=== PATIENT | male | born 1985 | race Native Hawaiian/Other Pacific Islander ===

== ENCOUNTER 2024-03-25 03:18 | Emergency (ER) | payer SELFPAY ==
--- NOTE | 2024-03-25 04:07 | EDPHYS ---
Physician Documentation [facility] Name: Cheo Amor Age: 38 yrs Sex: Male : 1985 Arrival Date: 03/25/2024 Time: 03:18 Bed IW1 Private MD: ED Physician Kareem Gutierrez HPI: 03/25 03:47 This 38 yrs old Male presents to ER via Ambulatory with complaints of Cough, sp4 Congestion, Fever, Drainage From Eye. 04:01 30-year-old male presents with 5 days of cough congestion bilateral eye drainage sp4 subjective fever and sore throat . Historical: - Allergies: 03:42 Sulfa (Sulfonamide Antibiotics); lg3 03:42 Vancomycin; lg3 - Home Meds: 03:42 furosemide 40 mg Oral tablet [Active]; Vitamin D Oral [Active]; Entresto 49-51 mg oral lg3 tablet [Active]; isosorbide mononitrate 30 mg Oral Tablet, Extended Release 24 hr [Active]; rosuvastatin 10 mg oral tablet [Active]; carvedilol 3.125 mg oral tablet [Active]; Metformin Oral [Active]; Trulicity 4.5 mg/0.5 mL subcutaneous Pen Injector [Active]; Basaglar KwikPen U-100 Insulin 100 unit/mL (3 mL) subcutaneous Insulin Pen [Active]; - PMHx: 03:42 Diabetes mellitus; systolic heart failure; Hypercholesterolemia; lg3 - PSHx: 03:42 anal fissure repair; Myringotomy and insertion of tympanic ventilation tube; lg3 - Immunization history:: Adult Immunizations up to date, Client reports receiving the 2nd dose of the Covid vaccine, Flu vaccine is not up to date. - Infectious Disease History:: Denies. - Social history:: Smoking status: Patient denies any tobacco usage or history of. Patient/guardian denies using alcohol, street drugs. - Family history:: not pertinent. ROS: 04:01 Constitutional: Positive fever, positive cough, positive congestion, positive sore sp4 throat, positive bilateral eye drainage 04:01 All other systems are negative, Exam: 04:01 Constitutional: This is a well developed, well nourished patient who is awake, alert, sp4 and in no acute distress. Head/Face: Normocephalic, atraumatic. Eyes: Pupils equal round and reactive to light, extra-ocular motions intact. Lids and lashes normal. Conjunctiva and sclera are injected bilaterally, bilateral tear duct purulent drainage. ENT: Nares patent. No nasal discharge, no septal abnormalities noted. Tympanic membranes are normal and external auditory canals are clear. Oropharynx with redness and exudate Neck: Trachea midline, no thyromegaly or masses palpated, and no cervical lymphadenopathy. Supple, full range of motion without nuchal rigidity, or vertebral point tenderness. Chest/axilla: Normal chest wall appearance and motion. Nontender with no deformity. No lesions are appreciated. Cardiovascular: Regular rate and rhythm with a normal S1 and S2. No gallops, murmurs, or rubs. Normal PMI, no JVD. No pulse deficits. Respiratory: Lungs have equal breath sounds bilaterally, clear to auscultation and percussion. No rales, rhonchi or wheezes noted. No increased work of breathing, no retractions or nasal flaring. Abdomen/GI: Soft, with normal bowel sounds. No distension or tympany. No guarding or rebound. No evidence of tenderness throughout. Back: No spinal tenderness. No costovertebral tenderness. Skin: Warm, dry with normal turgor. Normal color with no rashes, no lesions, and no evidence of cellulitis. MS/ Extremity: Pulses equal, no cyanosis. Neurovascular intact. Full, normal range of motion. Neuro: Awake and alert, GCS 15, oriented to person, place, time, and situation. Cranial nerves II-XII grossly intact. Motor strength 5/5 in all extremities. Sensory grossly intact. Psych: Awake, alert, with orientation to person, place and time. Behavior, mood, and affect are within normal limits Vital Signs: 03:40 BP 100 / 81; Pulse 111; Resp 17 S; Temp 98.4(O); Pulse Ox 98% on R/A; Weight 147.42 kg lg3 (R); Height 6 ft. 0 in. (R); 04:25 BP 101 / 83; Pulse 102; Resp 17 S; Temp 98.2(O); Pulse Ox 98% on R/A; lg3 03:40 Body Mass Index 44.08 (147.42 kg, 182.88 cm) lg3 Yoni Coma Score: 04:01 Eye Response: spontaneous(4). Motor Response: obeys commands(6). Verbal Response: sp4 oriented(5). Total: 15. MDM: 03:54 Patient medically screened. sp4 04:01 Differential Diagnosis: Bronchitis Influenza Upper Respiratory Infection Sinusitis sp4 Pharyngitis Otitis Media. Data reviewed: vital signs, nurses notes. ED course: Bilateral eye drainage -plan to give Rocephin and cephalexin.. Administered Medications: 04:21 Drug: Rocephin (cefTRIAXone) IM 1 grams IM once Route: IM; Site: right deltoid; lg3 04:26 Follow up: Response: No adverse reaction lg3 04:21 Not Given (not avaliablee): [id number] mg PO once lg3 04:21 Drug: Acetaminophen PO 1000 mg PO once Route: PO; lg3 04:26 Follow up: Response: No adverse reaction lg3 04:21 Drug: Ibuprofen PO 600 mg PO once Route: PO; lg3 04:26 Follow up: Response: No adverse reaction lg3 04:21 Drug: Tessalon Perle PO 200 mg PO once Route: PO; lg3 04:26 Follow up: Response: No adverse reaction lg3 Disposition Summary: 03/25/24 04:06 Discharge Ordered Notes: Location: Home sp4 Problem: new sp4 Symptoms: have improved sp4 Condition: Stable sp4 Diagnosis - Acute pharyngitis, unspecified sp4 - Acute bilateral tear duct infection, acute upper respiratory infection, acute sp4 bronchitis Followup: sp4 - With: Private Physician - When: 7 - 10 days - Reason: Recheck today's complaints Discharge Instructions: - Discharge Summary Sheet sp4 - Pharyngitis sp4 Forms: - Patient Portal Instructions sp4 Prescriptions: - Benadryl 25 mg Oral capsule - take 1 capsule ORAL route once daily As needed Before bedtime for congestion; sp4 30 tablet; Refills: 0, Product Selection Permitted - Cephalexin 500 mg Oral Capsule - take 1 capsule ORAL route every 12 hours for 10 days; 20 capsule; Refills: 0, sp4 Product Selection Permitted - Claritin 10 mg Oral Tablet - take 1 tablet ORAL route once daily As needed; 30 tablet; Refills: 0, Product sp4 Selection Permitted - benzonatate 200 mg Oral capsule - take 1 capsule ORAL route 3 times per day as needed; 60 capsule; Refills: 0, sp4 Product Selection Permitted Signatures: Araceli Walton RN RN lg3 Kareem Gutierrez MD MD sp4 Corrections: (The following items were deleted from the chart) 03:48 03:42 PMHx: Congestive heart failure; lg3 lg3
--- NOTE | 2024-03-25 04:07 | ER ---
Nurse's Notes [facility] Name: Cheo Amor Age: 38 yrs Sex: Male : 1985 Arrival Date: 03/25/2024 Time: 03:18 Bed IW1 Private MD: Diagnosis: Acute pharyngitis, unspecified;Acute bilateral tear duct infection, acute upper respiratory infection, acute bronchitis Presentation: 03/25 03:40 Chief complaint: Patient states: sore on the tip of my nose X2 weeks, runny nose, sore lg3 throat, congestion, drainage from right eye, pressure in both ears, headache. Coronavirus screen: Client denies travel out of the [place] in the last 14 days. Client presents with at least one sign or symptom that may indicate coronavirus-19. Standard/surgical mask placed on the client. Ebola Screen: No symptoms or risks identified at this time. Initial Sepsis Screen: Does the patient meet any 2 criteria? No. Patient's initial sepsis screen is negative. Does the patient have a suspected source of infection? No. Patient's initial sepsis screen is negative. Risk Assessment: Do you want to hurt yourself or someone else? Patient reports no desire to harm self or others. Onset of symptoms is unknown. 03:40 Method Of Arrival: Ambulatory lg3 03:40 Acuity: ISABELA 3 lg3 Triage Assessment: 03:42 General: Appears in no apparent distress. uncomfortable, Behavior is calm, cooperative. lg3 Pain: Complains of pain in head. EENT: Eyes with exudate noted from right eye Reports nasal congestion nasal discharge. Neuro: No deficits noted. Sanchez Agitation-Sedation Scale (RASS): 0 - Alert and Calm Level of Consciousness is awake, alert, obeys commands, Oriented to person, place, time, situation, Reports difficulty swallowing headache. Cardiovascular: No deficits noted. Denies chest pain, shortness of breath, Capillary refill < 3 seconds Clubbing of nail beds is absent JVD is absent Patient's skin is warm and dry. Respiratory: Reports cough that is pain with cough Airway is patent Respiratory effort is even, unlabored, Respiratory pattern is regular, symmetrical, Breath sounds are clear bilaterally. GI: No deficits noted. No signs and/or symptoms were reported involving the gastrointestinal system. Abdomen is round non-distended. : No deficits noted. No signs and/or symptoms were reported regarding the genitourinary system. Derm: Skin is intact, is healthy with good turgor, Skin is dry, Skin is normal, Skin temperature is warm Wound noted apex of the nose. Musculoskeletal: No deficits noted. No signs and/or symptoms reported regarding the musculoskeletal system. Circulation, motion, and sensation intact. Range of motion: intact in all extremities. Historical: - Allergies: 03:42 Sulfa (Sulfonamide Antibiotics); lg3 03:42 Vancomycin; lg3 - Home Meds: 03:42 furosemide 40 mg Oral tablet [Active]; Vitamin D Oral [Active]; Entresto 49-51 mg oral lg3 tablet [Active]; isosorbide mononitrate 30 mg Oral Tablet, Extended Release 24 hr [Active]; rosuvastatin 10 mg oral tablet [Active]; carvedilol 3.125 mg oral tablet [Active]; Metformin Oral [Active]; Trulicity 4.5 mg/0.5 mL subcutaneous Pen Injector [Active]; Basaglar KwikPen U-100 Insulin 100 unit/mL (3 mL) subcutaneous Insulin Pen [Active]; - PMHx: 03:42 Diabetes mellitus; systolic heart failure; Hypercholesterolemia; lg3 - PSHx: 03:42 anal fissure repair; Myringotomy and insertion of tympanic ventilation tube; lg3 - Immunization history:: Adult Immunizations up to date, Client reports receiving the 2nd dose of the Covid vaccine, Flu vaccine is not up to date. - Infectious Disease History:: Denies. - Social history:: Smoking status: Patient denies any tobacco usage or history of. Patient/guardian denies using alcohol, street drugs. - Family history:: not pertinent. Screenin:49 [facility] ED Fall Risk Assessment (Adult) History of falling in the last 3 months, lg3 including since admission No falls in past 3 months (0 pts) Confusion or Disorientation No (0 pts) Intoxicated or Sedated No (0 pts) Impaired Gait No (0 pts) Mobility Assist Device Used No (0 pt) Altered Elimination No (0 pt) Score/Fall Risk Level 0 - 2 = Low Risk Oriented to surroundings, Maintained a safe environment, Educated pt \T\ family on fall prevention, incl call for assistance when getting out of bed, Assessed \T\ reinforced patient's understanding of fall precautions. Abuse screen: Denies threats or abuse. Denies injuries from another. Nutritional screening: No deficits noted. Tuberculosis screening: No symptoms or risk factors identified. Assessment: 03:49 General: see triage assessment . Cardiovascular: No deficits noted. Denies chest pain, lg3 shortness of breath, Capillary refill < 3 seconds Clubbing of nail beds is absent JVD is absent Patient's skin is warm and dry. Respiratory: Reports cough that is pain with cough Airway is patent Trachea midline Respiratory effort is even, unlabored, Breath sounds are clear bilaterally. Vital Signs: 03:40 BP 100 / 81; Pulse 111; Resp 17 S; Temp 98.4(O); Pulse Ox 98% on R/A; Weight 147.42 kg lg3 (R); Height 6 ft. 0 in. (R); 04:25 BP 101 / 83; Pulse 102; Resp 17 S; Temp 98.2(O); Pulse Ox 98% on R/A; lg3 03:40 Body Mass Index 44.08 (147.42 kg, 182.88 cm) lg3 [place] Coma Score: 04:01 Eye Response: spontaneous(4). Motor Response: obeys commands(6). Verbal Response: sp4 oriented(5). Total: 15. ED Course: 03:20 Patient arrived in ED. [id number] 03:42 Triage completed. lg3 03:42 Arm band placed on left wrist. lg3 03:47 Kareem Gutierrez MD is Attending Physician. sp4 03:49 Patient has correct armband on for positive identification. lg3 04:25 No provider procedures requiring assistance completed. Patient did not have IV access lg3 during this emergency room visit. Administered Medications: 04:21 Drug: Rocephin (cefTRIAXone) IM 1 grams IM once Route: IM; Site: right deltoid; lg3 04:26 Follow up: Response: No adverse reaction lg3 04:21 Not Given (not avaliablee): [id number] mg PO once lg3 04:21 Drug: Acetaminophen PO 1000 mg PO once Route: PO; lg3 04:26 Follow up: Response: No adverse reaction lg3 04:21 Drug: Ibuprofen PO 600 mg PO once Route: PO; lg3 04:26 Follow up: Response: No adverse reaction lg3 04:21 Drug: Tessalon Perle PO 200 mg PO once Route: PO; lg3 04:26 Follow up: Response: No adverse reaction lg3 Medication: 04:25 VIS not applicable for this client. lg3 Outcome: 04:06 Discharge ordered by . sp4 04:25 Discharged to home ambulatory, lg3 04:25 Condition: stable 04:25 Discharge instructions given to patient, Instructed on discharge instructions, follow up and referral plans. medication usage, Demonstrated understanding of instructions, follow-up care, medications, Prescriptions given X 4, 04:29 Patient left the ED. lg3 Signatures: Araceli Walton RN RN lg3 Ema Saul [email or web address] Kareem Gutierrez MD MD sp4 Corrections: (The following items were deleted from the chart) 03:48 03:42 PMHx: Congestive heart failure; lg3 lg3
[2024-03-25] MEDS ORDERED: CEFTRIAXONE 1000 MG/VIAL ONE (04:13)
[2024-03-25] MEDS ORDERED: IBUPROFEN 200 MG TAB PO ONE (04:14)
[2024-03-25] MEDS ORDERED: LIDOCAINE 1% MPF 2 ML AMPULE ONE (04:14)
[2024-03-25] MEDS ORDERED: IBUPROFEN 400 MG TAB ONE (04:14)
[2024-03-25] MEDS ORDERED: ACETAMINOPHEN 500 MG TAB ONE (04:14)
[2024-03-25] MEDS ORDERED: BENZONATATE 100 MG CAP PO ONE ×2 (04:25→04:27)
[2024-03-25 04:37] VITALS: BP 101/83; TEMP 98.2; O2SAT 98
== END 2024-03-25 04:29 | disposition home or self-care (01) ==
LOC: ER 03:18
DX: J20.9 Acute bronchitis, unspecified (principal); H04.013 Acute dacryoadenitis, bilateral lacrimal glands
CPT/HCPCS: 96372; 99284; J0696